=== PATIENT | female | born 1935 | race Caucasian/White ===

== ENCOUNTER 2018-12-08 11:10 | Inpatient (IN) | payer MEDICARE ==
[~2018-12-08] VITALS: Ht 172.7 cm; Wt 64.6 kg
[2018-12-13 06:25] VITALS: BP 120/70
== END 2018-12-13 11:22 | DRG 956 ==
LOC: ED 12:36 → EDIP 13:03 → 4NOR 14:30
PROVIDERS: ADMIT Internal Medicine; ATTEND Internal Medicine
PROC: 0QS606Z Reposition Right Upper Femur with Intramedullary Internal Fixation Device, Open Approach (ICD-10-PCS; principal; 2018-12-09)
PROC: 30233N1 Transfusion of Nonautologous Red Blood Cells into Peripheral Vein, Percutaneous Approach (ICD-10-PCS; 2018-12-11)
DX: S72.141A Displaced intertrochanteric fracture of right femur, initial encounter for closed fracture (principal); S32.591A Other specified fracture of right pubis, initial encounter for closed fracture; S72.21XA Displaced subtrochanteric fracture of right femur, initial encounter for closed fracture; D64.9 Anemia, unspecified; E03.9 Hypothyroidism, unspecified; E55.9 Vitamin D deficiency, unspecified; E86.0 Dehydration; E87.6 Hypokalemia; I34.0 Nonrheumatic mitral (valve) insufficiency; M85.80 Other specified disorders of bone density and structure, unspecified site; W01.0XXA Fall on same level from slipping, tripping and stumbling without subsequent striking against object, initial encounter; Y92.89 Other specified places as the place of occurrence of the external cause; Y93.89 Activity, other specified; Y99.8 Other external cause status; Z66 Do not resuscitate; Z79.82 Long term (current) use of aspirin; Z79.890 Hormone replacement therapy; Z80.9 Family history of malignant neoplasm, unspecified; R73.9 Hyperglycemia, unspecified
CPT/HCPCS: 36415; 71045; 74176; 76000; 80048; 80053; 82040; 82272; 82306; 82607; 82728; 83540; 83550; 83735; 84100; 84439; 84443; 85025; 85610; 85730; 86850; 86900; 86923; 93005; 93306; 96374; C1713; G0378; J0690; J1100; J1756; J2250; J2405; J2704; J3010; J0330; J2270; J2370; J3420; J3475; J7030; J7121; P9016